=== PATIENT | female | born 1995 | race African-American/Black ===

== ENCOUNTER 2017-02-09 20:29 | Emergency (ER) | payer MEDICAID ==
[2017-02-09 21:12] LABS: HEMATOCRIT 40.3 % (36.0-48.0); HEMOGLOBIN 14.1 g/dL (12-16); MCH 29.7 pg (26.0-34.0); MCV 84.8 fL (80.0-100.0); MEAN PLATELET VOLUME 9.8 fL (7.4-10.4); PLATELET COUNT 249 10x3/uL (130-400); RBC 4.75 10x6/uL (4.00-5.40); RDW 13.3 % (11.5-14.5); WBC 4.7 10x3/uL (4.8-10.8)
[2017-02-09 21:17] LABS: AMORPHOUS SEDIMENT >1+ /lpf (NONE SEEN); APPEARANCE HAZY (CLEAR); BACTERIA MODERATE /hpf (NONE SEEN); BILIRUBIN NEGATIVE (NEGATIVE); COLOR YELLOW (YELLOW); GLUCOSE NEGATIVE (NEGATIVE); KETONE SMALL mg/dL (NEGATIVE); LEUKOCYTE ESTERASE TRACE (NEGATIVE); MUCUS <1+ /lpf (NONE SEEN); NITRITE NEGATIVE (NEGATIVE); PROTEIN NEGATIVE (NEGATIVE); RED CELLS - URINE RARE /hpf (0-5); UROBILINOGEN NORMAL (NORMAL); WHITE CELLS - URINE 0-5 /hpf (0-5)
[2017-02-09 21:32] LABS: ALBUMIN 3.9 g/dL (3.4-5.0); ALKALINE PHOSPHATASE 60 U/L (46-116); ALT (SGPT) 16 U/L (10-68); BILIRUBIN - TOTAL 0.27 mg/dL (0.2-1.3); CALC OSMOLALITY 277 mosm/kg (275-300); CARBON DIOXIDE 28.2 mmol/L (21.0-32.0); CHLORIDE - SERUM 103 mmol/L (98-107); CREATININE - SERUM 0.8 mg/dL (0.6-1.3); GLUCOSE 93 mg/dL (74-106); POTASSIUM - SERUM 3.6 mmol/L (3.5-5.1); PROTEIN - SERUM 7.6 g/dL (6.4-8.2); SODIUM 139 mmol/L (136-145); UREA NITROGEN 12 mg/dL (7-18); eGFR NON AFRICAN AMERICAN > 90 mL/min (90-120)
[2017-02-09 21:35] LABS: HCG SERUM NEGATIVE (NEGATIVE)
[2017-02-09 21:38] LABS: BASOPHILS 1 % (0-2); EOSINOPHILS 1 % (0-7); LYMPHOCYTES 58 % (15-50); MONOCYTES 9 % (2-11); NEUTROPHILS 31 % (40-80); PLATELET ESTIMATE NORMAL
== END 2017-02-09 23:19 | disposition home or self-care (01) ==
LOC: D.ER 20:29
PROVIDERS: Emergency Medicine
DX: R11.10 Vomiting, unspecified (principal); R19.7 Diarrhea, unspecified; R10.9 Unspecified abdominal pain; F17.200 Nicotine dependence, unspecified, uncomplicated; F12.90 Cannabis use, unspecified, uncomplicated

== ENCOUNTER → 2019-08-01 18:03 | Outpatient (CLI) | payer MEDICAID ==
[2019-08-01 19:07] LABS: BASOPHILS 0.3 % (0-2); EOSINOPHILS 0.3 % (0-7); HEMATOCRIT 36.9 % (36.0-48.0); HEMOGLOBIN 12.8 g/dL (12-16); IMMATURE GRANULOCYTES 0.4 % (0-5); LYMPHOCYTES 20.7 % (15-50); MCH 29.8 pg (26.0-34.0); MCHC 34.7 g/dL (31.0-37.0); MCV 85.8 fL (80.0-100.0); MEAN PLATELET VOLUME 9.9 fL (7.4-10.4); MONOCYTES 5.8 % (2-11); NEUTROPHILS 72.5 % (40-80); PLATELET COUNT 276 10x3/uL (130-400); WBC 7.1 10x3/uL (4.8-10.8)
[2019-08-01 19:17] LABS: CALC OSMOLALITY 265 mosm/kg (275-300); CALCIUM 8.7 mg/dL (8.5-10.1); CARBON DIOXIDE 26.6 mmol/L (21.0-32.0); CHLORIDE - SERUM 102 mmol/L (98-107); CREATININE - SERUM 0.6 mg/dL (0.6-1.3); POTASSIUM - SERUM 4.2 mmol/L (3.5-5.1); SODIUM 135 mmol/L (136-145); UREA NITROGEN 6 mg/dL (7-18); eGFR NON AFRICAN AMERICAN > 90 mL/min (90-120)
[2019-08-01 19:19] LABS: GLUCOSE 69 mg/dL (74-106)
[2019-08-01 19:22] LABS: ALBUMIN 3.3 g/dL (3.4-5.0); ALKALINE PHOSPHATASE 40 U/L (30-120); ALT (SGPT) 23 U/L (10-68); BILIRUBIN - TOTAL 0.47 mg/dL (0.2-1.3); PROTEIN - SERUM 7.1 g/dL (6.4-8.2)
== END | disposition home or self-care (01) ==
LOC: D.LDO 18:03
PROVIDERS: Obstetrics & Gynecology; ATTEND Student in an Organized Health Care Education/Training Program
DX: O26.899 Other specified pregnancy related conditions, unspecified trimester (principal); Z3A.00 Weeks of gestation of pregnancy not specified; R11.0 Nausea

== ENCOUNTER → 2019-10-14 11:01 | Outpatient (CLI) | payer MEDICAID ==
[2019-10-14 11:37] LABS: BILIRUBIN NEGATIVE (NEGATIVE); EPITHELIAL CELLS RARE /hpf (0-5); GLUCOSE NEGATIVE (NEGATIVE); KETONE NEGATIVE (NEGATIVE); NITRITE NEGATIVE (NEGATIVE); UROBILINOGEN NORMAL (NORMAL); WHITE CELLS - URINE 0-5 /hpf (NEGATIVE)
== END | disposition home or self-care (01) ==
LOC: D.LDO 11:01
PROVIDERS: ATTEND Student in an Organized Health Care Education/Training Program
DX: O36.8190 Decreased fetal movements, unspecified trimester, not applicable or unspecified (principal); Z3A.00 Weeks of gestation of pregnancy not specified

== ENCOUNTER → 2019-11-13 12:43 | Outpatient (CLI) | payer MEDICAID | END | disposition home or self-care (01) | LOC: D.US 12:43 → D.MAMMO 11-18 11:30 → D.US 11-18 11:30 | PROVIDERS: ATTEND Student in an Organized Health Care Education/Training Program | DX: N64.52 Nipple discharge (principal) ==

== ENCOUNTER 2019-11-30 11:57 | Emergency (ER) | payer MEDICAID ==
[~2019-11-30] VITALS: Ht 170.2 cm; Wt 75.0 kg
[2019-11-30 11:59] VITALS: Ht 170.2 cm; Wt 75.0 kg
[2019-11-30 12:40] LABS: BASOPHILS 0.1 % (0-2); EOSINOPHILS 0.7 % (0-7); HEMATOCRIT 32.7 % (36.0-48.0); HEMOGLOBIN 11.6 g/dL (12-16); IMMATURE GRANULOCYTES 0.9 % (0-5); LYMPHOCYTES 17.3 % (15-50); MCH 30.1 pg (26.0-34.0); MCHC 35.5 g/dL (31.0-37.0); MCV 84.9 fL (80.0-100.0); MEAN PLATELET VOLUME 9.9 fL (7.4-10.4); RBC 3.85 10x6/uL (4.00-5.40); RDW 14.1 % (11.5-14.5); WBC 8.8 10x3/uL (4.8-10.8)
[2019-11-30 12:42] LABS: PLATELET COUNT 211 10x3/uL (130-400)
[2019-11-30 12:48] LABS: APTT 31.9 SECONDS (22.8-39.4); INR 0.97 (0.85-1.17); PROTIME 12.9 SECONDS (11.6-15.0)
[2019-11-30 12:54] LABS: CALC OSMOLALITY 266 mosm/kg (275-300); CALCIUM 8.4 mg/dL (8.5-10.1); CARBON DIOXIDE 22.3 mmol/L (21.0-32.0); CHLORIDE - SERUM 102 mmol/L (98-107); CREATININE - SERUM 0.6 mg/dL (0.6-1.3); GLUCOSE 81 mg/dL (74-106); POTASSIUM - SERUM 3.6 mmol/L (3.5-5.1); SODIUM 134 mmol/L (136-145); UREA NITROGEN 12 mg/dL (7-18); eGFR NON AFRICAN AMERICAN > 90 mL/min (90-120)
[2019-11-30 13:18] LABS: ALBUMIN 2.9 g/dL (3.4-5.0); ALKALINE PHOSPHATASE 77 U/L (30-120); ALT (SGPT) 16 U/L (10-68); BILIRUBIN - TOTAL 0.28 mg/dL (0.2-1.3); CKMB 0.8 U/L (0.0-3.6); CREATINE KINASE 49 UL (21-215); HCG - QUANTITATIVE (MATERNAL) 17263 mIU/mL; MAGNESIUM - SERUM 1.9 mg/dL (1.8-2.4); PROTEIN - SERUM 6.7 g/dL (6.4-8.2); THYROID STIMULATING HORMONE 2.87 uIU/mL (0.36-3.74); TROPONIN-I < 0.017 ng/mL (0.000-0.060)
[2019-11-30] MEDS ORDERED: PHENERGAN25 M1 PO (14:39)
[2019-11-30 14:42] LABS: GLUCOSE NEGATIVE (NEGATIVE); KETONE SMALL mg/dL (NEGATIVE); NITRITE NEGATIVE (NEGATIVE)
[2019-11-30 14:43] LABS: BILIRUBIN NEGATIVE (NEGATIVE); UROBILINOGEN NORMAL (NORMAL)
[2019-11-30 15:07] LABS: UDS - AMPHET NEGATIVE QUAL (NEGATIVE); UDS - BARB NEGATIVE QUAL (NEGATIVE); UDS - BENZO NEGATIVE QUAL (NEGATIVE); UDS - COCAINE NEGATIVE QUAL (NEGATIVE); UDS - OPIATE NEGATIVE QUAL (NEGATIVE); UDS - PCP NEGATIVE QUAL (NEGATIVE); UDS - THC NEGATIVE QUAL (NEGATIVE)
[2019-11-30 15:15] VITALS: BP 117/63
== END 2019-11-30 15:15 | disposition home or self-care (01) ==
LOC: D.ER 11:57
PROVIDERS: Emergency Medicine
DX: O26.893 Other specified pregnancy related conditions, third trimester (principal); Z3A.29 29 weeks gestation of pregnancy; R10.2 Pelvic and perineal pain; R11.0 Nausea; R55 Syncope and collapse

== ENCOUNTER 2019-11-30 15:20 | Outpatient (CLI) | payer MEDICAID ==
[2019-11-30 11:59] VITALS: BMI 25.9
[~2019-11-30 15:20] MED LIST: PHENERGAN25 M1 PO
--- NOTE | 2019-11-30 16:27 | NUR ---
DR. VERA NOTIFIED AND REVIEWED PATIENT'S ASSESSMENT RESULTS. PATIENT IS A LOW RISK PER DR. VERA. RESOURCES GIVEN TO PATIENT AND REVIEWED. SHE VERBALIZES UNDERSTANDING.
== END 2019-11-30 16:48 | disposition home or self-care (01) ==
LOC: D.LDO 15:20
PROVIDERS: ATTEND Student in an Organized Health Care Education/Training Program
DX: O26.893 Other specified pregnancy related conditions, third trimester (principal); Z3A.28 28 weeks gestation of pregnancy; R55 Syncope and collapse

== ENCOUNTER 2020-02-10 14:48 | Outpatient (CLI) | payer MEDICAID | END 2020-02-10 18:36 | disposition home or self-care (01) | LOC: D.LDO 14:48 | PROVIDERS: ATTEND Student in an Organized Health Care Education/Training Program | DX: O36.8130 Decreased fetal movements, third trimester, not applicable or unspecified (principal); Z3A.39 39 weeks gestation of pregnancy ==

== ENCOUNTER 2020-02-19 08:01 | Inpatient (IN) | payer MEDICAID ==
[~2020-02-19] VITALS: Ht 162.6 cm; Wt 91.6 kg
--- NOTE | ~2020-02-19 | OP ---
PATIENT NAME: SUZANNA SHEN MEDICAL RECORD: [id number] :89 LOCATION:[facility].[id number] ADMISSION DATE:02/19/20 SURGEON: EVARISTO FRIED DO DATE OF OPERATION: 02/20/2020 PREOPERATIVE DIAGNOSIS: Nonreassuring heart tracing. POSTOPERATIVE DIAGNOSIS: Nonreassuring heart tracing. PRIMARY SURGEON: Evaristo Fried DO ANESTHESIA: Epidural. PROCEDURE: Primary low transverse section via Pfannenstiel incision. FINDINGS: Female delivered at 1043, weight 7 pounds 2-1/2 ounces, Apgars 8 and 9. Normal appearing placenta, uterus, bilateral fallopian tubes, bilateral ovaries. SPECIMENS: Placenta and cord. ESTIMATED BLOOD LOSS: 900 cc. IV FLUIDS: 2500 cc. URINE OUTPUT: 275 cc clear urine. COMPLICATIONS: None. CONDITION: Stable. The risks, benefits, alternatives and indications of the procedure were discussed with the patient. She voiced understanding of the procedure and wished to proceed. PROCEDURE IN DETAIL: She was taken to the OR where epidural anesthesia was administered and found to be adequate. She was placed in the dorsal supine position with leftward tilt. She was prepped and draped in the normal sterile fashion. The Pfannenstiel skin incision was made with a scalpel and carried down to the underlying layer of the fascia. The fascia was grasped and the rectus muscle was dissected off bluntly. The rectus muscle was in the midline down to the level peritoneum. The peritoneum was identified and noted to be free of adherent bowel and entered bluntly. Peritoneum was further with gentle traction. The bladder blade was inserted. The uterus was incised in a transverse fashion in the lower uterine segment. The incision was extended with cephalad caudad traction. The infant's head was brought to the incision and a tight nuchal cord times 2 was noted, it was reduced over the head during delivery of the . The baby delivered without difficulty. Mouth and nose were suctioned. Cord was clamped and cut and the infant was handed off to awaiting pediatricians. The placenta was manually removed. The uterus was exteriorized and a moist lap was used to assure complete removal of placental membranes. The hysterotomy was closed with 0 Vicryl in a running locked fashion with good hemostasis with double 2-layer closure. The posterior cul-de-sac was irrigated and suctioned with Go suctioned. The uterus, tubes and ovaries were otherwise were noted to be normal and returned back to the abdominal cavity OPERATIVE REPORT [id number] SUZANNA SHEN and moist laparotomy sponge was used to assure complete removal of blood clots and fluid from the abdominal cavity and the hysterotomy was reinspected and noted to be hemostatic. The rectus muscle was closed with 2-0 Monocryl in a running fashion with good hemostasis. The fascial incision was closed with 0 Vicryl in running fashion with good hemostasis. The skin was closed in a subcuticular fashion, 3-0 Monocryl and Dermabond covering. All needle, lap, sponge, and instrument counts were correct times 2. The patient tolerated the procedure well and she was taken to recovery room in stable condition. TRANSINT:[id number] Voice Confirmation ID: [id number] DOCUMENT ID: [id number] EVARISTO FRIED DO CC: [id number] DICTATION DATE: 02/20/20 1214 SALESPERSON WOMEN'S DRESSES: 02/20/20 1641 ADM IN [facility] [address] [place] [address]
[2020-02-19 14:22] LABS: HEMATOCRIT 30.3 % (36.0-48.0); MCH 27.1 pg (26.0-34.0); MCV 82.1 fL (80.0-100.0); MEAN PLATELET VOLUME 9.9 fL (7.4-10.4); RBC 3.69 10x6/uL (4.00-5.40); RDW 15.8 % (11.5-14.5); WBC 8.3 10x3/uL (4.8-10.8)
[2020-02-19 14:29] LABS: UDS - AMPHET NEGATIVE QUAL (NEGATIVE); UDS - BARB NEGATIVE QUAL (NEGATIVE); UDS - BENZO NEGATIVE QUAL (NEGATIVE); UDS - COCAINE NEGATIVE QUAL (NEGATIVE); UDS - OPIATE NEGATIVE QUAL (NEGATIVE); UDS - PCP NEGATIVE QUAL (NEGATIVE); UDS - THC NEGATIVE QUAL (NEGATIVE)
[2020-02-19] MEDS ORDERED: VALTREX500 MG PO (15:05)
[2020-02-19] MEDS ORDERED: SYNTHROID137 MCG PO (15:05)
[2020-02-19 15:07] VITALS: BP 130/58; Ht 162.6 cm; Wt 91.6 kg
[2020-02-20] VITALS (13 sets, daily range): BP systolic 107–127; BP diastolic 53–71
[2020-02-20 06:11] LABS: RAPID PLASMA REAGIN Non Reactive (Non Reactive)
--- NOTE | 2020-02-20 11:53 | NUR ---
CARE ASSUMED FROM PIO MORIN RN
--- NOTE | 2020-02-20 12:10 | NUR ---
FUNDUS FIRM, MIDLINE. MOD HEAVY BLEEDING TO PERIPAD
--- NOTE | 2020-02-20 12:20 | NUR ---
REC'D BACK TO ROOM 1273 FROM PACU. DROWSY BUT EASILY AROUSABLE TO VOICE. DENIES PAIN. VSS. FUNDUS FIRM, MIDLINE AND 1U WITH SMALL AMT RUBRA LOCHIA, NO CLOTS NOTED. 150 MLS CLEAR LIGHT YELLOW URINE IN UROMETER, 700 MLS EMPTIED FROM BAG. SCD'S ON BLE. PERICARE DONE, PADS APPLIED. DENIES NEEDS AT THIS TIME. BED IN LOW POSITION WITH SRUP X2. CALL LIGHT AND PHONE WITHIN REACH. WILL CONTINUE TO MONITOR.
--- NOTE | 2020-02-20 12:49 | NUR ---
VSS. SHIFT ASSESSMENT COMPLETED PER FLOWSHEET. RESTING QUIETLY WITH EYES CLOSED, EASILY AROUSES TO VOICE. FUNDUS FIRM, MIDLINE AND 2U, SMALL AMT RUBRA LOCHIA, NO CLOTS NOTED. PERICARE DONE. PT REPOSITIONED TO R SIDE, PILLOW BEHIND BACK FOR COMFORT AND SUPPORT. BOWEL SOUNDS PRESENT AND ACTIVE X4. BUCHANAN DRAINING TO BEDSIDE DRAINAGE SYSTEM, CLEAR LIGHT YELLOW URINE PRESENT. LOWER TRANSVERSE ABD INCISION COVERED WITH DRSG, DRSG CLEAN DRY AND INTACT WITH NO DRAINAGE NOTED. RESP REGULAR AND UNLABORED, CLEAR AND EQUAL. BED IN LOW POSITION WITH SRUP X2. CALL LIGHT AND PHONE WITHIN REACH. PAIN NOW 1-2/10, DENIES NEED FOR INTERVENTION. POC DISCUSSED WITH PT, VERBALIZES UNDERSTANDING. ICE PACK PROVIDED. DENIES NEEDS AT THIS TIME.
--- NOTE | 2020-02-20 13:53 | NUR ---
VSS. FUNDUS FIRM MIDLINE AND 2U, SMALL AMT RUBRA LOCHIA, NO CLOTS. PERICARE DONE, PERIPADS CHANGED. C/O INCISIONAL DISCOMFORT 3-09/19, STATES "IT'S BEARABLE." EDUCATED ON PAIN MEDS ORDERED, DENIES NEED AT THIS TIME AND STATES THAT SHE WILL ASK FOR MEDS PRN. JELLO, POPICLE, CHICKEN BROTH, AND ICE WATER PROVIDED. INSTRUCTED ON INCENTIVE SPIROMETER USE WITH RETURN DEMOSTRATION, GOOD EFFORT. SCD'S ON BLE. BED IN LOW POSITION WITH SRUP X2. CALL LIGHT AND PHONE WITHIN REACH. WILL CONTINUE TO MONITOR.
--- NOTE | 2020-02-20 14:40 | NUR ---
CALLS VIA CALL LIGHT, REQUEST PAIN MEDS. C/O INCISIONAL DISCOMFORT 01/19, ACHING/BURNING. TORADOL AND MORPHINE GIVEN PER ORDER. EDUCATED ON MEDS, VERBALIZES UNDERSTANDING AND DENIES QUESTIONS.
--- NOTE | 2020-02-20 15:06 | NUR ---
RESTING QUIETLY WITH EYES CLOSED IN SEMI-FOWLERS POSITION, RESP REGULAR AND UNLABORED, NO S/S OF DISTRESS NOTED. BED IN LOW POSITION WITH SRUP X2. CALL LIGHT AND PHONE WITHIN REACH. WILL CONTINUE TO MONITOR.
--- NOTE | 2020-02-20 15:59 | NUR ---
ANALYSIS ENGINEER INITIATED PER ORDER AND PT REQUEST. C/O INCISIONAL DISCOMFORT, 10/19. INSTRUCTED ON ANALYSIS ENGINEER USE, VERBALIZES UNDERSTANDING. INCENTIVE SPIROMETER DONE WITH GOOD EFFORT X10. ICE WATER AND NEW ICE PACK PROVIDED. SCD'S ON BLE. BUCHANAN 650 MLS CLEAR LIGHT YELLOW URINE EMPTIED FROM BUCHANAN. DENIES NEEDS.
--- NOTE | 2020-02-20 16:19 | NUR ---
PAIN REASSESSMENT COMPLETED, RESP REGULAR AND UNLABORED, NO S/S OF DISTRESS NOTED. V/S REMAIN STABLE. WILL CONTINUE TO MONITOR.
--- NOTE | 2020-02-20 17:12 | NUR ---
FUNDUS FIRM, MIDLINE UU, SMALL AMOUNT LOCHIA RUBRA, NO CLOTS. BUCHANAN DRAINING TO BEDSIDE DRAINAGE WITHOUT DIFFICULTY. SCDS ON BLE. FOB AT BEDSIDE, SUPPORTIVE AND ATTENTIVE. LINENS PROVIDED TO FOB. REINFORCED LADIES' HAT TRIMMER TEACHING. VERBALIZES UNDERSTANDING. VSS. LIGHTS OFF PER REQUEST.
--- NOTE | 2020-02-20 18:34 | NUR ---
VSS. FUNDUS FIRM, 1U WITH SLIGHT LEFT SHIFT. BUCHANAN DRAINING WELL. I&O DONE. PERICARE DONE. INCENTIVE SPIROMETER DONE WITH GOOD EFFORT. SCD'S ON BLE. DENIES NEEDS. BED IN LOW POSITION WITH SRUP X2. CALL LIGHT ANDP TAMMY WITHIN REACH. PERIPADS CHANGED.
--- NOTE | 2020-02-20 19:08 | NUR ---
TO ROOM TO MEET PT WITH DAY SHIFT, PT RESTING IN BED.
--- NOTE | 2020-02-20 20:15 | NUR ---
ASSESSMENT COMPLETE PER FLOWSHEET, VSS, NO PROBLEMS NOTED, WILL MONTIOR.
--- NOTE | 2020-02-20 21:35 | NUR ---
IN PT ROOM TO ADMINISTER MEDS, PT RESTING IN BED, NO PROBLEMS NOTED, WILL MONITOR.
--- NOTE | 2020-02-20 22:20 | NUR ---
ROOM CHECK COMPLETE, PT RESTING QUIETLY, NO PROBLEMS NOTED, WILL MONITOR.
--- NOTE | 2020-02-20 23:20 | NUR ---
TO ROOM TO NORMALIZE PT FROM A C-SEC DELIVERY, MORPHINE DATA POWER CONSULTANT REMOVED WITH REMAINING MED WASTED, IV SALINE LOCKED, BUCHANAN DC'D, CATH INTACKED, PT TOLERATED WELL, WILL MONITOR.
--- NOTE | 2020-02-21 01:15 | NUR ---
ROOM CHECK COMPLETE, PT RESTING QUIETLY, DENIES NEEDS AT THIS TIME.
--- NOTE | 2020-02-21 03:30 | NUR ---
PT UP TO THE RESTROOM, UNABLE TO VOID, PT GIVEN GLASS OF WATER AND CRANBERRY JUICE, EXPLAINED TO DRINK MUCH SHE CAN TO VOID BEFORE 6AM, UNDERSTANDING STATED, PT CLEANED AND BED CHANGED, GIORGIO ROPER.
[2020-02-21 03:45] VITALS: BP 118/56
--- NOTE | 2020-02-21 05:50 | NUR ---
PT UP TO RESTROOM, VOIDED 550 MLS.
[2020-02-21 08:16] LABS: BASOPHILS 0.1 % (0-2); EOSINOPHILS 0.9 % (0-7); IMMATURE GRANULOCYTES 0.4 % (0-5); LYMPHOCYTES 15.4 % (15-50); MCH 26.9 pg (26.0-34.0); MCHC 32.8 g/dL (31.0-37.0); MEAN PLATELET VOLUME 9.9 fL (7.4-10.4); MONOCYTES 6.4 % (2-11); NEUTROPHILS 76.8 % (40-80)
[2020-02-21 08:21] LABS: HEMATOCRIT 23.2 % (36.0-48.0); HEMOGLOBIN 7.6 g/dL (12-16); PLATELET COUNT 189 10x3/uL (130-400); RBC 2.83 10x6/uL (4.00-5.40); WBC 11.7 10x3/uL (4.8-10.8)
[2020-02-21 09:22] VITALS: BP 108/54
--- NOTE | 2020-02-21 09:22 | NUR ---
THIS RN AT BEDSIDE WITH Alina SAMUEL RN. THIS RN ALSO ASSESSES PT AND CONCURS WITH SHIFT ASSESSENT CHARTED.
--- NOTE | 2020-02-21 09:22 | NUR ---
SHIFT ASSESSMENT COMPLETED PER FLOWSHEET. VSS. FUNDUS UU SLIGHT LEFT SHIFT NOTED, SMALL AMOUNT LOCHIA RUBRA, NO CLOTS NOTED. BOWEL SOUNDS ACTIVE X4 QUADRANTS. LOWER TRANSVERSE ABD INCISION WELL APPROXIMATED, GLUE INTACT, CLEAN AND DRY. PT CAN GET UP AND VOID WITHOUT DIFFICULTY. PT REPORTS SHE IS PASSING FLATUS WITHOUT DIFFICULTY. SCDS PUT ON. POC DISCUSSED WITH PT. WERBALIZES UNDERSTANDING AND DENIES QUESTIONS. BED IN LOW POSITION, CALL LIGHT AND PHONE WITHIN REACH. SRUPX2 WITHIN REACH
--- NOTE | 2020-02-21 10:21 | NUR ---
ROUNDS MADE. BONDING WITH AT THIS TIME. DENIES NEEDS. BED IN LOW POSITION WITH SRUP X2. CALL LIGHT AND PHONE WITHIN REACH. WILL CONTINUE TO MONITOR.
[2020-02-21 13:37] VITALS: BP 118/68
--- NOTE | 2020-02-21 13:37 | NUR ---
VSS. FUNDUS FIRM, SLIGHT LEFT SHIFT, UU. SMALL AMOUNT LOCHIA RUBRA. NO CLOTS NOTED. POC REENFORCED. ENCOURAGED AMBULATION OUT OF ROOM IN [place]. GARRETT OFFERED AND DECLINED. STATES "IT WILL MAKE HER SLEEPY AND SHE DOES NOT WANT TO BE SLEEPY." DENIES NEEDS, BED IN LOW POSITION, SRUP X2, CALL LIGHT AND PHONE WITHIN REACH.
--- NOTE | 2020-02-21 14:52 | NUR ---
AMBULATORY ON UNIT, STEADY GAIT NOTED. PUSHING INFANT IN OPEN CRIB. C/O ABD AND INCISIONAL DISCOMFORT. MEDICATED PER EMAR. ICE WATER PROVIDED. DENIES ADDITIONAL NEEDS.
--- NOTE | 2020-02-21 15:37 | NUR ---
AMBULATORY IN [place]. PAIN REASSESSMENT COMPLETED. 09/19. DENIES NEED FOR ADDITIONAL INTERVENTION. STEADY GAIT NOTED. WILL CONTINUE TO MONITOR.
--- NOTE | 2020-02-21 16:32 | NUR ---
BLANKETS PROVIDED PER . DENIES ADDITIONAL NEEDS. FOB AT BEDSIDE, SUPPORTIVE AND ATTENTIVE TO PT AND NEEDS.
--- NOTE | 2020-02-21 18:35 | NUR ---
C/O ABD AND INCISIONAL DISCOMFORT. PERCOCET GIVEN PER ORDER AND PT REQUEST. BACK TO NBN PER PT REQUEST. REINFORCED TEACHING ON BREAST CARE, VERBALIZES UNDERSTANDING AND DENIES QUESTIONS AND ADDITIONAL NEEDS. BED IN LOW POSITION WITH SRUP X2. CALL LIGHT AND PHONE WITHIN REACH. WILL CONTINUE TO MONITOR.
--- NOTE | 2020-02-21 19:15 | NUR ---
second IV STARTED LEFT HAND WITH #20 GAUGE CATHLON. BLOOD TUBING AND NS CONNECTED. TEGADERM APPLIED; BLOOD TUBING CONNECTED WITH NS
[2020-02-21 21:00] VITALS: BP 127/55
--- NOTE | 2020-02-21 21:00 | NUR ---
PT UP IN ROOM, ASSESSMENT COMPLETE, LUNG SOUNDS CLEAR BILATERALLY, ABD SOFT AND ROUND BS HYPOACTIVE, PT STATES IS NOT PASSING FLATUS. SIMETHICONE GIVEN, ENCOURAGED PT TO AMBULATE. FUNDUS FIRM ML AT UMBILICUS WITH SMALL AMT OF RUBRA LOCHIA. ABD INCISION CLEAN DRY INTACT. PT GETTING UP TO SHOWER. BED LINENS CHANGED. SR UP X2 CALL LIGHT IN REACH
--- NOTE | 2020-02-21 23:18 | NUR ---
ROUNDS ON PT. PT, DAD AND BABY ARE ALL SLEEPING AT THIS TIME.
--- NOTE | 2020-02-22 01:30 | NUR ---
PT IS RESTING QUIETLY. NO C/O OR NEEDS AT THIS TIME.
--- NOTE | 2020-02-22 04:00 | NUR ---
PT IS RESTING QUIETLY WITH HER EYES CLOSED. RESPIRATIONS ARE EVEN AND UNLABORED. NO C/O OR NEEDS
--- NOTE | 2020-02-22 06:25 | NUR ---
RESTING QUIETLY WITHOUT C/O
--- NOTE | 2020-02-22 06:27 | NUR ---
PT IS SLEEPING QUIETLY WITHOUT C/O
[2020-02-22 07:11] VITALS: BP 129/55
--- NOTE | 2020-02-22 08:05 | NUR ---
pain reassessment, pt resting with eyes closed on entry to room, nad noted, pt reports pain more manageable and "able to touch my stomach now"; rates pain 4 out of 10. ice water provided upon request, no other needs voiced at present. continue to monitor.
--- NOTE | 2020-02-22 09:00 | NUR ---
rounds completed, am meds passed without difficulty, pt remains recumbent; left lateral position, denies needs on inquiry, encouraged ambulation in halls today and tcdb/use of incentive spirometry; pt voices understanding and intent to comply. c/l in easy reach, side rails up x2, bed in low position, continue to monitor.
[2020-02-22] MEDS ORDERED: PERCOCET 10-321 EAC1 PO (09:17)
[2020-02-22] MEDS ORDERED: IBUPROFEN600 MG PO (09:17)
--- NOTE | 2020-02-22 10:53 | NUR ---
rounds completed, pt oob to br, pt reports feeling "gassy", encouraged ambulation in halls, discussed plan of care, pt voices understanding and denies other needs. breakfast tray removed from room. call light in easy reach of pt, will monitor.
--- NOTE | 2020-02-22 11:40 | NUR ---
ambulatory in halls pushing in rolling crib and talking on cell phone. nad noted. continue to monitor.
--- NOTE | 2020-02-22 12:30 | NUR ---
rounds completed, tolerating po intake well, passsing flatus after ambulation in halls. nad noted.
--- NOTE | 2020-02-22 13:30 | NUR ---
rounds completed, nad notd, ice water provided upon request.
--- NOTE | 2020-02-22 14:30 | NUR ---
resp even and unlabored, nad, call light in easy reach.
--- NOTE | 2020-02-22 15:30 | NUR ---
rounds completed, discharge instructions reviewed with pt and significant other, questions answered, nad noted. pt states understanding of all information relayed, has handouts for referral once discharged.
--- NOTE | 2020-02-22 16:06 | NUR ---
pt c/o incisional pain rated 8 out of 10 on numeric pain scale, prn percocet given with sips water, saline lock discontinued, catheter tip intact, pressure dressing applied to site, pt tolerates procedure well.
--- NOTE | 2020-02-22 16:40 | NUR ---
PT DISCHARGED VIA W/C WITH IN [place], ALL PERSONAL BELONGINGS WITH PT AND SIGNIFICANT OTHER, NAD NOTED, STABLE CONDITION.
--- NOTE | 2020-02-24 10:32 | MORECARE ---
CASE MANAGEMENT DISCHARGE SUMMARY PATIENT: SUZANNA SHEN UNIT: [id number] ADM DATE: 02/19/20 AGE: 24 : 89 SEX: F ROOM/BED: D.1273 AUTHOR: JUSTIN ESTEVEZ PHYSICIAN: REFERRING PHYSICIAN: EVARISTO FRIED DO DATE OF SERVICE: 02/24/20 Discharge Plan Patient Name: SUZANNA SHEN Facility: [facility]:[place] : 1995 Planned Disposition: Home Anticipated Discharge Date: 02/22/20 Discharge Date: 02/22/2020 Expected LOS: 3 Initial Reviewer: [email or web address] Initial Review Date: 02/19/2020 Generated: 02/24/20 11:31 am Patient Name: SUZANNA SHEN Page [id number] at 1032 All edits/amendments must be made on the electronic document DICTATION DATE: 02/24/20 1032 CLIENT SUPPORT ANALYST: DANE 02/24/20 1032 RPT#: [id number] DC DATE:02/22/20 STATUS: DIS IN [facility] [address] [place] [address] END OF REPORT
== END 2020-02-22 16:40 | disposition home or self-care (01) | DRG 787 ==
LOC: D.LD 08:01
PROVIDERS: ADMIT Student in an Organized Health Care Education/Training Program; ATTEND Student in an Organized Health Care Education/Training Program
PROC: 10D00Z1 Extraction of Products of Conception, Low, Open Approach (ICD-10-PCS; principal; 2020-02-20 10:00)
DX: O99.824 Streptococcus B carrier state complicating childbirth (principal); O98.52 Other viral diseases complicating childbirth; Z3A.40 40 weeks gestation of pregnancy; Z37.0 Single live birth; B00.9 Herpesviral infection, unspecified; O36.8330 Maternal care for abnormalities of the fetal heart rate or rhythm, third trimester, not applicable or unspecified